=== PATIENT | male | born 2000 | race Caucasian/White ===

== ENCOUNTER 2022-08-03 22:02 | Emergency (ER) | payer BC ==
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
[2022-08-03] MEDS ORDERED: HYDROcodone/APAP 5 MG/325 MG (LORTAB) TAB PO ONE (22:30)
[2022-08-03] MEDS ORDERED: BACI28.4 TP (23:01)
[2022-08-03] MEDS ORDERED: ACHD5005 PO (23:01)
[2022-08-03 23:07] VITALS: BP 167/94
== END 2022-08-03 23:08 | disposition home or self-care (01) ==
LOC: EDUNIT# 22:02 → ER 22:05
DX: T23.272A Burn of second degree of left wrist, initial encounter (principal); T20.211A Burn of second degree of right ear [any part, except ear drum], initial encounter; T20.27XA Burn of second degree of neck, initial encounter; Z88.0 Allergy status to penicillin; Z28.310 Unvaccinated for COVID-19; X08.8XXA Exposure to other specified smoke, fire and flames, initial encounter
CPT/HCPCS: 99283